=== PATIENT | female | born 1985 | race African-American/Black ===

== ENCOUNTER 2017-08-26 09:20 | Emergency (ER) | payer SELFPAY ==
[2017-08-26] MEDS ORDERED: Diazepam 5 MG TAB ONE (10:08)
[2017-08-26] MEDS ORDERED: Amlodipine 5 MG TAB ONE (10:09)
== END 2017-08-26 10:10 | disposition home or self-care (01) ==
LOC: MADERS 09:20
DX: K62.89 Other specified diseases of anus and rectum (principal); I10 Essential (primary) hypertension; F17.210 Nicotine dependence, cigarettes, uncomplicated
CPT/HCPCS: 99282